=== PATIENT | male | born 1985 | race African-American/Black ===

== ENCOUNTER 2020-10-05 10:45 | Emergency (ER) | payer OTHER, BC ==
[2020-10-05] MEDS ORDERED: Ketorolac 60 MG/2 ML SDV IM ONE (10:57)
[2020-10-05] MEDS ORDERED: Ketorolac 30 MG/ML SDV IM ONE (11:00)
[2020-10-05] MEDS ORDERED: HYDROmorphone 2 MG/ML SDV IM PRN (11:01)
--- NOTE | 2020-10-05 11:36 | EDM.PDOC ---
ED HPI GENERAL MEDICAL PROBLEM - General Chief Complaint: Headache Stated Complaint: MIGRAINE Time Seen by Provider: 10/05/20 12:00 Source of Information: Reports: Patient History Limitations: Reports: No Limitations - History of Present Illness INITIAL COMMENTS - FREE TEXT/NARRATIVE: 35 year old male Presented to ER with c/o cluster headache, rating pain a 8 on 1-10 scale. Oxygen put on patient as he states this works in the past. Hx headaches x 20 years. He has been having 6 to 7 x day. Does see a neurologist and is on a tapering dose of prednisone. The pain is sharp & throbbing started at 4 0 clock this morning .Nothing makes pain better . 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 - Related Data Allergies Allergy/AdvReac Type Severity Reaction Status Date / Time No Known Allergies Allergy Verified 10/05/20 10:56 Home Meds: Home Meds Galcanezumab-Gnlm [Emgality] 240 mg SQ ASDIRECTED 10/05/20 [History] predniSONE [Prednisone] 80 mg PO DAILY 10/05/20 [History] Past Medical History - Past Health History Medical/Surgical History: Denies Medical/Surgical History Neurological History: Reports: Migraines Other Neuro History: cluster headache x 20 years has been ahving 6 to 7 x day Psychiatric History: Reports: Depression Social & Family History - Family History Family Medical History: No Pertinent Family History ED ROS GENERAL - Review of Systems Review Of Systems: See Below Constitutional: Reports: No Symptoms HEENT: Reports: No Symptoms Respiratory: Reports: No Symptoms, Shortness of Breath, Wheezing, Cough, Sputum Cardiovascular: Reports: No Symptoms, Chest Pain, Dyspnea on Exertion GI/Abdominal: Reports: No Symptoms, Abdominal Pain, Anorexia, Constipation, Diarrhea Musculoskeletal: Reports: No Symptoms Neurological: Reports: Other (cluster headache ) ED EXAM, NEURO - Physical Exam Exam: See Below Exam Limited By: No Limitations General Appearance: Alert, WD/WN, Anxious Ears: Normal External Exam, Normal Canal Head Exam: Atraumatic, Normocephalic Respiratory/Chest: No Respiratory Distress, Lungs Clear, Normal Breath Sounds, No Accessory Muscle Use, Chest Non-Tender Cardiovascular: Normal Peripheral Pulses, Regular Rate, Rhythm, No Edema Neurological: Alert, Normal Mood/Affect, CN II-XII Intact, No Motor/Sensory Deficits, Oriented x 3 Course - Vital Signs Text/Narrative:: 35 years old male came for cluster headache started this morning - He reported that he is under treatment for cluster headache -& oxygen therapy makes him better - Oxygen therapy started at rate of 15 liters /minute inj Toradol given given - wait fro 30 minutes NO relief of pain - injection Dilaudid 2 mg 1/v given patient was feeling better -pain reduced to 6/10. He was felling noxious- I gave him Zofran orally but he was not feeling better . Then I gave him inj Compazine 5mg iv-he was feeling better . pt has high glucose & also glycosuria -I told him to see the primary care provider Disposition -the patient was discharged home stable Last Recorded V/S: Last Vital Signs Temp 97.7 F 10/05/20 11:18 Pulse 80 10/05/20 11:20 Resp 18 10/05/20 11:20 BP 156/108 H 10/05/20 11:20 Pulse Ox 100 10/05/20 11:20 - Orders/Labs/Meds Orders: Active Orders 24 hr Category Date Time Status Oxygen Therapy, ED [RC] ASDIRECTED Care 10/05/20 10:59 Active HYDROmorphone [Dilaudid] Med 10/05/20 11:42 Active 2 mg IV ONETIME PRN Sodium Chloride 0.9% [Saline Flush] Med 10/05/20 13:06 Active 10 ml FLUSH ASDIRECTED PRN Medication Orders Hydromorphone HCl (Dilaudid) 2 mg IV ONETIME PRN PRN Reason: Pain Last Admin: 10/05/20 11:43 Dose: 2 mg Documented by: FORREST Sodium Chloride (Saline Flush) 10 ml FLUSH ASDIRECTED PRN PRN Reason: Keep Vein Open Last Admin: 10/05/20 13:07 Dose: 10 ml Documented by: MAYLIN Labs: Laboratory Tests 10/05/20 10/05/20 10/05/20 Range/Units 11:10 11:10 12:10 WBC 8.4 (4.0-11.0) K/uL RBC 4.92 (4.50-6.50) M/uL Hgb 14.8 (13.0-18.0) g/dL Hct 42.8 (40.0-54.0) % MCV 87 (76-96) fL MCH 30.1 (27.0-32.0) pg MCHC 34.6 (31.0-35.0) g/dL RDW 13.0 (11.0-16.0) % Plt Count 210 (150-400) K/uL MPV 11.3 H (6.0-10.0) fL Neut % (Auto) 87.0 H (45.0-70.0) % Lymph % (Auto) 11.4 L (20.0-40.0) % [place] % (Auto) 1.5 L (3.0-10.0) % Eos % (Auto) 0.0 L (1.0-5.0) % Baso % (Auto) 0.1 (0.0-0.5) % Neut # (Auto) 7.31 (2.00-7.50) K/uL Lymph # (Auto) 0.96 L (1.50-4.00) K/uL [place] # (Auto) 0.13 L (0.20-0.80) K/uL Eos # (Auto) 0.00 L (0.04-0.40) K/uL Baso # (Auto) 0.01 L (0.02-0.10) K/uL Sodium 140 (136-145) mmol/L Potassium 4.0 (3.5-5.1) mmol/L Chloride 102 (98-107) mmol/L Carbon Dioxide 27.2 (21.0-32.0) mmol/L Anion Gap 14.8 (5.0-15.0) mmol/L BUN 16 (8-26) mg/dL Creatinine 1.16 (0.70-1.30) mg/dL Est Cr Clr Drug Dosing 101.37 mL/min Estimated GFR (MDRD) > 60 (>60) MLS/MIN BUN/Creatinine Ratio 13.8 (6-25) Glucose 155 H (74-100) mg/dL Calcium 9.1 (8.5-10.1) mg/dL Total Bilirubin 0.4 (0.0-1.0) mg/dL AST 10 L (15-37) U/L ALT 22 (12-78) U/L Alkaline Phosphatase 67 (46-116) U/L Total Protein 8.0 (6.4-8.2) g/dL Albumin 4.1 (3.4-5.0) g/dL Globulin 3.9 (2.2-4.2) g/dL Albumin/Globulin Ratio 1.1 (0.8-2.0) Urine Color Yellow Urine Appearance Clear (CLEAR) Urine pH 7.0 (5.0-8.0) Ur Specific [place] 1.025 (1.003-1.030) Urine Protein Negative (NEGATIVE) mg/dL Urine Glucose (UA) 250 H (NEGATIVE) mg/dL Urine Ketones Negative (NEGATIVE) mg/dL Urine Occult Blood Negative (NEGATIVE) Urine Nitrite Negative (NEGATIVE) Urine Bilirubin Negative (NEGATIVE) Urine Urobilinogen 1.0 (0.2-1.0) E.U./dL Ur Leukocyte Esterase Negative (NEGATIVE) Urine RBC Not seen /HPF Urine WBC 0-5 H /HPF Ur Squamous Epith Cells Occasional /HPF Urine Opiates Screen (NEGATIVE) Ur Oxycodone Screen (NEGATIVE) Urine Methadone Screen (NEGATIVE) Ur Barbiturates Screen (NEGATIVE) Ur Tricyclics Screen (NEGATIVE) Ur Phencyclidine Scrn (NEGATIVE) Ur Amphetamine Screen (NEGATIVE) U Methamphetamines Scrn (NEGATIVE) Urine MDMA Screen (NEGATIVE) U Benzodiazepines Scrn (NEGATIVE) U Cocaine Metab Screen (NEGATIVE) U Marijuana (THC) Screen (NEGATIVE) 10/05/20 Range/Units 12:10 WBC (4.0-11.0) K/uL RBC (4.50-6.50) M/uL Hgb (13.0-18.0) g/dL Hct (40.0-54.0) % MCV (76-96) fL MCH (27.0-32.0) pg MCHC (31.0-35.0) g/dL RDW (11.0-16.0) % Plt Count (150-400) K/uL MPV (6.0-10.0) fL Neut % (Auto) (45.0-70.0) % Lymph % (Auto) (20.0-40.0) % [place] % (Auto) (3.0-10.0) % Eos % (Auto) (1.0-5.0) % Baso % (Auto) (0.0-0.5) % Neut # (Auto) (2.00-7.50) K/uL Lymph # (Auto) (1.50-4.00) K/uL [place] # (Auto) (0.20-0.80) K/uL Eos # (Auto) (0.04-0.40) K/uL Baso # (Auto) (0.02-0.10) K/uL Sodium (136-145) mmol/L Potassium (3.5-5.1) mmol/L Chloride (98-107) mmol/L Carbon Dioxide (21.0-32.0) mmol/L Anion Gap (5.0-15.0) mmol/L BUN (8-26) mg/dL Creatinine (0.70-1.30) mg/dL Est Cr Clr Drug Dosing mL/min Estimated GFR (MDRD) (>60) MLS/MIN BUN/Creatinine Ratio (6-25) Glucose (74-100) mg/dL Calcium (8.5-10.1) mg/dL Total Bilirubin (0.0-1.0) mg/dL AST (15-37) U/L ALT (12-78) U/L Alkaline Phosphatase (46-116) U/L Total Protein (6.4-8.2) g/dL Albumin (3.4-5.0) g/dL Globulin (2.2-4.2) g/dL Albumin/Globulin Ratio (0.8-2.0) Urine Color Urine Appearance (CLEAR) Urine pH (5.0-8.0) Ur Specific [place] (1.003-1.030) Urine Protein (NEGATIVE) mg/dL Urine Glucose (UA) (NEGATIVE) mg/dL Urine Ketones (NEGATIVE) mg/dL Urine Occult Blood (NEGATIVE) Urine Nitrite (NEGATIVE) Urine Bilirubin (NEGATIVE) Urine Urobilinogen (0.2-1.0) E.U./dL Ur Leukocyte Esterase (NEGATIVE) Urine RBC /HPF Urine WBC /HPF Ur Squamous Epith Cells /HPF Urine Opiates Screen Positive H (NEGATIVE) Ur Oxycodone Screen Negative (NEGATIVE) Urine Methadone Screen Negative (NEGATIVE) Ur Barbiturates Screen Negative (NEGATIVE) Ur Tricyclics Screen Negative (NEGATIVE) Ur Phencyclidine Scrn Negative (NEGATIVE) Ur Amphetamine Screen Negative (NEGATIVE) U Methamphetamines Scrn Negative (NEGATIVE) Urine MDMA Screen Negative (NEGATIVE) U Benzodiazepines Scrn Negative (NEGATIVE) U Cocaine Metab Screen Negative (NEGATIVE) U Marijuana (THC) Screen Negative (NEGATIVE) Meds: Medications Generic Name Dose Route Start Last Admin Trade Name Freq PRN Reason Stop Dose Admin Hydromorphone HCl 2 mg 10/05/20 11:42 10/05/20 11:43 Dilaudid IV 2 mg ONETIME PRN Administration Pain Sodium Chloride 10 ml 10/05/20 13:06 10/05/20 13:07 Saline Flush FLUSH 10 ml ASDIRECTED PRN Administration Keep Vein Open Discontinued Medications Generic Name Dose Route Start Last Admin Trade Name Freq PRN Reason Stop Dose Admin Hydromorphone HCl 2 mg 10/05/20 11:01 Dilaudid IM ONETIME PRN Pain Hydromorphone HCl Confirm 10/05/20 11:46 10/05/20 11:42 Dilaudid Administered 10/05/20 11:47 Not Given Dose 2 mg .ROUTE .STK-MED ONE Ketorolac Tromethamine 15 mg 10/05/20 10:57 10/05/20 11:44 Toradol IM 10/05/20 10:58 Not Given ONETIME ONE Ketorolac Tromethamine 15 mg 10/05/20 11:00 10/05/20 11:18 Toradol IM 10/05/20 11:01 15 mg ONETIME ONE Administration Ondansetron HCl 4 mg 10/05/20 11:58 10/05/20 12:02 Zofran Odt PO 10/05/20 11:59 4 mg ONETIME ONE Administration Ondansetron HCl Confirm 10/05/20 12:09 10/05/20 12:27 Zofran Odt Administered 10/05/20 12:10 Not Given Dose 4 mg .ROUTE .STK-MED ONE Prochlorperazine Edisylate 5 mg 10/05/20 12:57 10/05/20 13:04 Compazine IVPUSH 10/05/20 12:58 5 mg ONETIME ONE Administration Prochlorperazine Edisylate Confirm 10/05/20 13:09 10/05/20 13:09 Compazine Administered 10/05/20 13:10 Not Given Dose 10 mg .ROUTE .STK-MED ONE Departure - Departure Time of Disposition: 13:50 Disposition: Home, Self-Care 01 Condition: Fair Clinical Impression: Migraine, Cluster headache syndrome - Discharge Information *PRESCRIPTION DRUG MONITORING PROGRAM REVIEWED*: No *COPY OF PRESCRIPTION DRUG MONITORING REPORT IN PATIENT RICHARD: No Referrals: PCP,None [Primary Care Provider] - Forms: ED Department Discharge Additional Instructions: Please follow up with primary care physician about your lab results from ER visit, along with hypertension while in ER. If your symptoms return or worsen please come back to the ER. Care Plan Goals: Please follow up with primary care physician about your lab results from ER visit, along with hypertension while in ER. If your symptoms return or worsen p lease come back to the ER. Sepsis Event Note (ED) - Evaluation Sepsis Screening Result: No Definite Risk - Focused Exam Vital Signs: Vital Signs Temp Pulse Resp BP Pulse Ox 10/05/20 11:20 80 18 156/108 H 100 10/05/20 11:18 97.7 F 97 16 151/105 H 99 10/05/20 11:10 20 175/141 H 100 10/05/20 11:05 94 20 143/117 H 100 - Problem List & Annotations (1) Cluster headache syndrome SNOMED Code(s): 915301060 Code(s): G44.009 - CLUSTER HEADACHE SYNDROME, UNSPECIFIED, NOT INTRACTABLE Status: Acute Priority: Medium Current Visit: Yes Onset Date: ~10/05/20 (2) High glucose SNOMED Code(s): 23574666 Code(s): R73.09 - OTHER ABNORMAL GLUCOSE Status: Acute Priority: Medium Current Visit: Yes Onset Date: ~10/05/20 Annotation/Comment:: advise to see his primary care - My Orders Last 24 Hours: My Active Orders 10/05/20 10:59 Oxygen Therapy, ED [RC] ASDIRECTED 10/05/20 11:42 HYDROmorphone [Dilaudid] 2 mg IV ONETIME PRN 10/05/20 13:06 Sodium Chloride 0.9% [Saline Flush] 10 ml FLUSH ASDIRECTED PRN - Assessment/Plan Last 24 Hours: My Active Orders 10/05/20 10:59 Oxygen Therapy, ED [RC] ASDIRECTED 10/05/20 11:42 HYDROmorphone [Dilaudid] 2 mg IV ONETIME PRN 10/05/20 13:06 Sodium Chloride 0.9% [Saline Flush] 10 ml FLUSH ASDIRECTED PRN
[2020-10-05] MEDS ORDERED: HYDROmorphone 2 MG/ML SDV IV PRN (11:42)
[2020-10-05] MEDS ORDERED: HYDROmorphone 2 MG/ML SDV ONE (11:46)
[2020-10-05] MEDS ORDERED: Ondansetron 4 MG Tab.DIS PO ONE (11:58)
[2020-10-05] MEDS ORDERED: Ondansetron 4 MG Tab.DIS ONE (12:09)
[2020-10-05] MEDS ORDERED: Prochlorperazine 10 MG/2 ML SDV IVPUSH ONE (12:57)
[2020-10-05] MEDS ORDERED: Sodium Chloride 0.9% 10 ML Syringe FLUSH PRN (13:06)
[2020-10-05] MEDS ORDERED: Prochlorperazine 10 MG/2 ML SDV ONE (13:09)
== END 2020-10-05 13:35 | disposition home or self-care (01) ==
LOC: LB.ED 10:45
DX: G44.009 Cluster headache syndrome, unspecified, not intractable (principal); G43.909 Migraine, unspecified, not intractable, without status migrainosus
CPT/HCPCS: 36415; 80053; 80307; 81001; 85025; 96372; 96374; 96375; 99285; A9270; J0780; J1170; J1885; 99284

== ENCOUNTER 2020-10-27 16:06 | Emergency (ER) | payer BC, OTHER ==
--- NOTE | 2020-10-27 19:52 | ER ---
REASON FOR EMERGENCY ROOM VISIT: Scalp laceration. HISTORY: This 35-year-old man was slipped on the ice just outside the hospital and fell backwards striking his occipital scalp sustaining a small laceration. He denies any loss of consciousness but did feel "woozy" for a few seconds after the event. He denies any other associated injuries. PHYSICAL EXAMINATION: HEENT: He has a 3 mm to 4 mm very clean laceration on his occipital scalp. The skin edges are approximated. There is minimal underlying swelling. No bony crepitus is palpable. NEUROLOGIC EXAMINATION: Cranial nerves 2 through 12 are intact. Deep tendon reflexes are symmetrical bilaterally in the upper and lower extremities. Muscle tone, bulk, and strength is normal and symmetrical. Sensory is normal to crude touch. IMPRESSION: Scalp laceration. FURTHER EMERGENCY ROOM COURSE: The area was cleaned with Betadine, soap, and water. We discussed options including stapling versus tissue glue and he opted for the latter, which I agreed with. Skin edges were already approximated. Glue was applied and allowed to dry. A small amount of tincture of benzoin was applied around this area as well and it was covered with an occlusive layer of Steri-Strips. The patient was instructed to allow these to fall off over the next several days, to avoid getting it wet or showering until tomorrow. We did discuss symptoms and signs of infection as well as any concerns that might prompt him to need to return to the emergency room from a neurologic standpoint. He was given an instruction sheet in this regard. All questions were answered. He understands and agrees. OMI/CHLOE /[id number] VERNA
== END 2020-10-27 16:15 | disposition home or self-care (01) ==
LOC: LB.ED 16:06
DX: S01.01XA Laceration without foreign body of scalp, initial encounter (principal); W01.0XXA Fall on same level from slipping, tripping and stumbling without subsequent striking against object, initial encounter
CPT/HCPCS: 12001; 99282; 99282-25